=== PATIENT | male | born 1985 | race African-American/Black ===

== ENCOUNTER 2017-09-21 08:25 | Emergency (ER) | payer SELFPAY ==
[2017-09-21] MEDS ORDERED: Water For Inject, Bacteriostat 30 ML ONE (09:07)
[2017-09-21] MEDS ORDERED: methylPREDNISolone Sod Succ/PF 125 MG/2 ML VIAL ONE (09:07)
[2017-09-21] MEDS ORDERED: methylPREDNISolone Sod Succ/PF 125 MG/2 ML VIAL IVP SCH (09:30)
[2017-09-21] MEDS ORDERED: methylPREDNISolone Sod Succ/PF 125 MG/2 ML VIAL IM SCH (09:30)
== END 2017-09-21 09:28 | disposition home or self-care (01) ==
LOC: ERS 08:25
DX: J45.901 Unspecified asthma with (acute) exacerbation (principal); I10 Essential (primary) hypertension; F17.210 Nicotine dependence, cigarettes, uncomplicated; Z79.899 Other long term (current) drug therapy
CPT/HCPCS: 93005; 94640; 96372; J2930; J7620

== ENCOUNTER 2018-01-13 16:39 | Emergency (ER) | payer SELFPAY ==
[2018-01-13] MEDS ORDERED: Ketorolac Tromethamine 30 MG/ML VIAL ONE (19:10)
[2018-01-13] MEDS ORDERED: Cyclobenzaprine 10 MG TAB ONE (19:10)
== END 2018-01-13 19:22 | disposition home or self-care (01) ==
LOC: ERS 16:39
DX: M54.5 Low back pain (principal); I10 Essential (primary) hypertension; J45.909 Unspecified asthma, uncomplicated; Z87.891 Personal history of nicotine dependence; Z79.899 Other long term (current) drug therapy
CPT/HCPCS: 96372; J1885

== ENCOUNTER 2018-05-02 17:58 | Emergency (ER) | payer SELFPAY ==
[2018-05-02] MEDS ORDERED: predniSONE 20 MG TAB ONE (18:48)
== END 2018-05-02 19:30 | disposition home or self-care (01) ==
LOC: ERS 17:58
DX: I10 Essential (primary) hypertension (principal); J45.909 Unspecified asthma, uncomplicated; F17.210 Nicotine dependence, cigarettes, uncomplicated; Z79.899 Other long term (current) drug therapy
CPT/HCPCS: J7506; J7620

== ENCOUNTER 2018-11-14 14:40 | Emergency (ER) | payer SELFPAY ==
[2018-11-14] MEDS ORDERED: Bupivacaine 0.25% 10 ML VIAL ONE (15:02)
--- NOTE | 2018-11-15 13:59 | EKG ---
Test Reason : Blood Pressure : / mmHG Vent. Rate : 086 BPM Atrial Rate : 086 BPM P-R Int : 158 ms QRS Dur : 090 ms QT Int : 372 ms P-R-T Axes : 038 -01 007 degrees QTc Int : 445 ms Normal sinus rhythm Possible Left atrial enlargement Left ventricular hypertrophy Abnormal ECG Confirmed by FESTUS PEAOCCK D.O. ([id number]), industrial editor CHAPIN PEREZ ([id number]) on 11/15/2018 1:59:03 PM Referred By: Confirmed By:FESTUS PEACOCK D.O.
== END 2018-11-14 15:29 | disposition home or self-care (01) ==
LOC: ERS 14:40
DX: K04.7 Periapical abscess without sinus (principal); I10 Essential (primary) hypertension; Z87.891 Personal history of nicotine dependence; Z79.51 Long term (current) use of inhaled steroids; Z79.899 Other long term (current) drug therapy
CPT/HCPCS: 93005; S0020

== ENCOUNTER 2018-12-16 10:22 | Emergency (ER) | payer SELFPAY ==
[2018-12-16 11:54] LABS: #Basophils 0.1 thou/uL (0.0-0.2); #Eosinphils 0.1 thou/uL (0.0-0.7); #Lymphocytes 1.9 thou/uL (1.20-3.40); #Monocytes 0.4 thou/uL (0.11-0.59); #Neutrophils 5.9 thou/uL (1.40-6.50); %Eosinophils 1.4 % (0.0-10.0); %Lymphocytes 22.5 % (21.0-51.0); %Monocytes 5.1 % (0.0-10.0); Mean Corpuscular HGB CONC 32.4 g/dL (32.0-36.0); Mean Corpuscular Hemoglobin 26.7 pg (27.0-31.0); Mean Corpuscular Volume 82.4 fL (78.0-98.0); Mean Platelet Volume 7.4 fL (7.4-10.4); Platelet Count 258 thou/uL (130-400); RBC Distribution Width 14.2 % (11.5-14.5); Red Blood Cell (RBC) Count 5.61 mill/uL (4.70-6.10); White Blood Cell (WBC) Count 8.4 thou/uL (4.8-10.8)
--- NOTE | 2018-12-16 12:24 | CT ---
NONCONTRAST CT HEAD: Date: 12/16/18 HISTORY: Headache and chills. FINDINGS: There is no evidence of a hemorrhage, acute infarction, mass effect, or midline shift. Ventricular sy stem is normal in size, shape, and position. There is mild mucosal thickening in the ethmoidal air ce lls bilaterally, as well as involving the right sphenoid sinus. Mastoid air cells are clear. Calvaria l structures are intact. IMPRESSION: 1. No acute intracranial abnormality is demonstrated. 2. Mild sinus disease. POS: [facility]
[2018-12-16] MEDS ORDERED: Ibuprofen 800 MG TAB ONE (12:39)
[2018-12-16 12:46] LABS: Anion Gap 13 mmol/L (10-20); BUN (Urea Nitrogen) 8 mg/dL (8.9-20.6); Calc. Creatinine Clearance 0 mL/min (70-130); Calcium 9.7 mg/dL (7.8-10.44); Carbon Dioxide 23 mmol/L (22-29); Estimated GFR-MDRD Greater than 90; Glucose 86 mg/dL (70-105)
[2018-12-16 12:51] LABS: Chloride 104 mmol/L (98-107); Sodium 136 mmol/L (136-145)
--- NOTE | 2018-12-20 13:29 | EKG ---
Test Reason : HEADACHE/DIZZINESS Blood Pressure : / mmHG Vent. Rate : 080 BPM Atrial Rate : 080 BPM P-R Int : 162 ms QRS Dur : 092 ms QT Int : 366 ms P-R-T Axes : 025 004 012 degrees QTc Int : 422 ms Normal sinus rhythm Moderate voltage criteria for LVH, may be normal variant Borderline ECG Confirmed by HOMERO DE SANTIAGO ([id number]), editor producer CHAPIN PEREZ ([id number]) on 12/20/2018 1:28:40 PM Referred By: ANYI Confirmed By:HOMERO DE SANTIAGO
== END 2018-12-16 12:36 | disposition home or self-care (01) ==
LOC: ERS 10:22
DX: I10 Essential (primary) hypertension (principal); B34.9 Viral infection, unspecified; J45.909 Unspecified asthma, uncomplicated; Z87.891 Personal history of nicotine dependence; Z79.899 Other long term (current) drug therapy
CPT/HCPCS: 36415; 70450; 80048; 84484; 85025; 87804; 93005

== ENCOUNTER 2019-02-03 05:56 | Emergency (ER) | payer SELFPAY | END 2019-02-03 06:21 | disposition home or self-care (01) | LOC: ERS 05:56 | DX: R11.2 Nausea with vomiting, unspecified (principal); R10.9 Unspecified abdominal pain; I10 Essential (primary) hypertension; J45.909 Unspecified asthma, uncomplicated; Z87.891 Personal history of nicotine dependence; Z79.899 Other long term (current) drug therapy | CPT/HCPCS: 99283 ==

== ENCOUNTER 2019-02-06 05:40 | Emergency (ER) | payer SELFPAY ==
[2019-02-06] MEDS ORDERED: Ondansetron PF 4 MG/2 ML Vial ONE (06:02)
[2019-02-06 06:27] LABS: #Basophils 0.1 thou/uL (0.0-0.2); #Eosinphils 0.2 thou/uL (0.0-0.7); #Monocytes 0.6 thou/uL (0.11-0.59); %Basophils 1.3 % (0.0-1.0); %Eosinophils 2.6 % (0.0-10.0); %Lymphocytes 34.1 % (21.0-51.0); %Monocytes 9.6 % (0.0-10.0); %Neutrophils 52.4 % (42.0-75.0); Hemoglobin 14.9 g/dL (14.0-18.0); Mean Corpuscular HGB CONC 31.7 g/dL (32.0-36.0); Mean Corpuscular Volume 85.4 fL (78.0-98.0); Platelet Count 184 thou/uL (130-400); RBC Distribution Width 13.7 % (11.5-14.5); Red Blood Cell (RBC) Count 5.51 mill/uL (4.70-6.10); White Blood Cell (WBC) Count 5.8 thou/uL (4.8-10.8)
[2019-02-06 07:52] LABS: Albumin 4.1 g/dL (3.5-5.0)
[2019-02-06 07:53] LABS: Chloride 109 mmol/L (98-107); Potassium 4.3 mmol/L (3.5-5.1); Sodium 140 mmol/L (136-145)
[2019-02-06 07:54] LABS: Calcium 8.5 mg/dL (7.8-10.44)
[2019-02-06 07:55] LABS: Globulin 2.5 g/dL (2.4-3.5); Glucose 91 mg/dL (70-105); Protein, Total 6.6 g/dL (6.0-8.3)
[2019-02-06 07:56] LABS: Anion Gap 14 mmol/L (10-20); Bilirubin, Total Less than 0.2 mg/dL (0.2-1.2); Carbon Dioxide 21 mmol/L (22-29)
[2019-02-06 07:57] LABS: Alkaline Phosphatase 79 U/L (40-150)
[2019-02-06 07:58] LABS: Calc. Creatinine Clearance 0 mL/min (70-130); Estimated GFR-MDRD Greater than 90
[2019-02-06 07:59] LABS: BUN (Urea Nitrogen) 9 mg/dL (8.9-20.6)
[2019-02-06 08:00] LABS: AST (SGOT) 23 U/L (5-34)
[2019-02-06 08:01] LABS: ALT (SGPT) 25 U/L (8-55); Lipase 33 U/L (8-78)
== END 2019-02-06 08:20 | disposition home or self-care (01) ==
LOC: ERS 05:40
DX: R11.2 Nausea with vomiting, unspecified (principal); R19.7 Diarrhea, unspecified; I10 Essential (primary) hypertension; J45.909 Unspecified asthma, uncomplicated; Z87.891 Personal history of nicotine dependence; Z79.899 Other long term (current) drug therapy
CPT/HCPCS: 36415; 80053; 82274; 83630; 83690; 85025; 87045; 87046; 87449; 87899; 96361; 96374; J2405

== ENCOUNTER 2019-05-22 05:29 | Emergency (ER) | payer SELFPAY | END 2019-05-22 05:48 | disposition home or self-care (01) | LOC: ERS 05:29 | DX: K52.9 Noninfective gastroenteritis and colitis, unspecified (principal); I10 Essential (primary) hypertension; Z87.891 Personal history of nicotine dependence; Z79.899 Other long term (current) drug therapy | CPT/HCPCS: 99283 ==

== ENCOUNTER 2020-06-30 10:28 | Emergency (ER) | payer SELFPAY ==
[2020-06-30] MEDS ORDERED: Ketorolac Tromethamine 30 MG/ML VIAL ONE (11:59)
--- NOTE | 2020-06-30 12:28 | RAD ---
RADIOGRAPH CERVICAL SPINE 3 VIEWS: DATE: 06/30/2020 HISTORY: 35-year-old male with cervicalgia TECHNIQUE: AP, lateral, and swimmer's views. FINDINGS: Alignment is normal. However, all levels caudal to C4-5 are obscured by the shoulders on the lateral view, and very poorly visualized on the swimmer's view, because of body habitus. Vertebral body heights and disc spaces are maintained. Borderline thickening of prevertebral soft tissues. There is no fracture, significant osteophytes, or any other focal osseous abnormality superior to C4-5. IMPRESSION: 1. No abnormality of cervical spine identified superior to C4-5. 2. Levels inferior to C4-5 are obscured.
== END 2020-06-30 12:55 | disposition home or self-care (01) ==
LOC: ERS 10:28
DX: M62.838 Other muscle spasm (principal); I10 Essential (primary) hypertension; J45.909 Unspecified asthma, uncomplicated; Z87.891 Personal history of nicotine dependence
CPT/HCPCS: 72040; 96372; J1885

== ENCOUNTER 2020-07-07 13:18 | Emergency (ER) | payer OTHER, SELFPAY ==
[2020-07-08 14:26] LABS: SARS-CoV-2 MS2 Positive; SARS-CoV-2 N Gene Negative; SARS-CoV-2 S Gene Negative; SARS-CoV-2 by NAA Not Detected (NotDetected); SARS-CoV-2 orf1ab Negative
== END 2020-07-07 13:32 | disposition home or self-care (01) ==
LOC: ERS 13:18
DX: R50.9 Fever, unspecified (principal); R51 Headache; R06.02 Shortness of breath; Z20.828 Contact with and (suspected) exposure to other viral communicable diseases; I10 Essential (primary) hypertension; J45.909 Unspecified asthma, uncomplicated; Z87.891 Personal history of nicotine dependence
CPT/HCPCS: 87635; 99283; U0003

== ENCOUNTER 2020-11-21 22:07 | Emergency (ER) | payer OTHER, SELFPAY ==
[2020-11-21] MEDS ORDERED: predniSONE 20 MG TAB ONE ×2 (23:11→23:12)
[2020-11-21] MEDS ORDERED: Albuterol 200 PUFF (6.7GM INHALER) ONE (23:13)
[2020-11-22 05:19] LABS: SARS-CoV-2 MS2 Positive; SARS-CoV-2 N Gene Negative; SARS-CoV-2 S Gene Negative; SARS-CoV-2 by NAA Not Detected (NotDetected); SARS-CoV-2 orf1ab Negative
== END 2020-11-22 00:16 | disposition home or self-care (01) ==
LOC: ERS 22:07
DX: R06.2 Wheezing (principal); Z20.828 Contact with and (suspected) exposure to other viral communicable diseases; I10 Essential (primary) hypertension; Z87.891 Personal history of nicotine dependence
CPT/HCPCS: 87635; J7512; U0003

== ENCOUNTER 2020-12-27 08:33 | Emergency (ER) | payer SELFPAY | END 2020-12-27 09:25 | disposition home or self-care (01) | LOC: ERS 08:33 | DX: J45.901 Unspecified asthma with (acute) exacerbation (principal); I10 Essential (primary) hypertension; Z87.891 Personal history of nicotine dependence; Z79.51 Long term (current) use of inhaled steroids | CPT/HCPCS: 99284 ==

== ENCOUNTER 2021-03-27 08:44 | Emergency (ER) | payer SELFPAY ==
[2021-03-27] MEDS ORDERED: Lidocaine Viscous Sol 2% 15 ml UD Cup ONE (10:05)
[2021-03-27] MEDS ORDERED: Mag-Al 1200 mg/1200 mg/30 ML UDCUP ONE (10:05)
[2021-03-27] MEDS ORDERED: Ketorolac Tromethamine 30 MG/ML VIAL ONE (10:06)
[2021-03-27 10:08] LABS: #Basophils 0.1 thou/uL (0.0-0.2); #Eosinphils 0.4 thou/uL (0.0-0.7); #Lymphocytes 2.5 thou/uL (1.20-3.40); #Monocytes 0.8 thou/uL (0.11-0.59); #Neutrophils 4.1 thou/uL (1.40-6.50); %Basophils 1.3 % (0.0-1.0); %Eosinophils 5.1 % (0.0-10.0); %Lymphocytes 31.9 % (21.0-51.0); %Neutrophils 51.7 % (42.0-75.0); Hemoglobin 14.2 g/dL (14.0-18.0); Mean Corpuscular HGB CONC 31.5 g/dL (32.0-36.0); Mean Corpuscular Hemoglobin 27.3 pg (27.0-31.0); Mean Corpuscular Volume 86.6 fL (78.0-98.0); Mean Platelet Volume 7.6 fL (7.4-10.4); Platelet Count 229 thou/uL (130-400); Red Blood Cell (RBC) Count 5.22 mill/uL (4.70-6.10); White Blood Cell (WBC) Count 7.9 thou/uL (4.8-10.8)
[2021-03-27 10:29] LABS: ALT (SGPT) 29 U/L (8-55); AST (SGOT) 32 U/L (5-34); Alkaline Phosphatase 61 U/L (40-110); Anion Gap 13 mmol/L (10-20); BUN (Urea Nitrogen) 12 mg/dL (8.9-20.6); Bilirubin, Total Less than 0.2 mg/dL (0.2-1.2); Calc. Creatinine Clearance 0 mL/min (70-130); Calcium 8.4 mg/dL (7.8-10.44); Carbon Dioxide 23 mmol/L (22-29); Chloride 109 mmol/L (98-107); Globulin 2.9 g/dL (2.4-3.5); Glucose 107 mg/dL (70-105); Potassium 4.6 mmol/L (3.5-5.1); Protein, Total 6.9 g/dL (6.0-8.3); Sodium 140 mmol/L (136-145)
== END 2021-03-27 11:20 | disposition home or self-care (01) ==
LOC: ERS 08:44
DX: K27.9 Peptic ulcer, site unspecified, unspecified as acute or chronic, without hemorrhage or perforation (principal); K03.81 Cracked tooth; I10 Essential (primary) hypertension; F17.200 Nicotine dependence, unspecified, uncomplicated; J45.909 Unspecified asthma, uncomplicated; Z79.899 Other long term (current) drug therapy
CPT/HCPCS: 36415; 71045; 80053; 84484; 85025; 93005; 96374; J1885

== ENCOUNTER 2021-04-19 16:07 | Emergency (ER) | payer SELFPAY ==
[2021-04-19] MEDS ORDERED: Dexamethasone 4 MG TAB ONE ×2 (16:20→16:21)
== END 2021-04-19 16:46 | disposition home or self-care (01) ==
LOC: ERS 16:07
DX: J45.901 Unspecified asthma with (acute) exacerbation (principal); I10 Essential (primary) hypertension
CPT/HCPCS: 94640; J7620; J8540

== ENCOUNTER 2021-04-22 13:10 | Emergency (ER) | payer SELFPAY ==
[2021-04-22] MEDS ORDERED: diphenhydrAMINE 25 MG CAP ONE (14:07)
[2021-04-22] MEDS ORDERED: Metoclopramide HCl 10 MG TAB ONE (14:07)
[2021-04-22] MEDS ORDERED: hydrOXYzine 25 MG TAB ONE (14:07)
== END 2021-04-22 14:58 | disposition home or self-care (01) ==
LOC: ERS 13:10
DX: I10 Essential (primary) hypertension (principal); J45.909 Unspecified asthma, uncomplicated
CPT/HCPCS: 99283; Q0163

== ENCOUNTER 2022-09-13 15:39 | Outpatient (CLI) | payer BC | END 2022-09-13 15:40 | disposition home or self-care (01) | LOC: LABBT 15:39 | PROVIDERS: ATTEND Specialist | DX: Z01.810 Encounter for preprocedural cardiovascular examination (principal); R94.31 Abnormal electrocardiogram [ECG] [EKG] | CPT/HCPCS: 93005; 93010 ==

== ENCOUNTER 2022-09-14 06:46 | Day surgery (SDC) | payer BC ==
[2022-09-13 15:31] VITALS: BMI 33.0
[2022-09-14] MEDS ORDERED: Ketorolac Tromethamine 30 MG/ML VIAL ONE (07:25)
[2022-09-14] MEDS ORDERED: Acetaminophen 500 MG TAB ONE (07:25)
[2022-09-14] MEDS ORDERED: Bupivacaine PF 0.5% 30 ML VIAL ONE (08:51)
[2022-09-14] MEDS ORDERED: EPINEPHrine 1 MG/ML AMP ONE (08:51)
[2022-09-14] MEDS ORDERED: Levofloxacin 500 mg/D5W 100 ml Premix Bag ONE (10:09)
[2022-09-14] MEDS ORDERED: Glycopyrrolate 0.2 MG/ML 5 ML SYRINGE ONE (10:14)
[2022-09-14] MEDS ORDERED: Dexamethasone 20 MG/5 ML VIAL ONE (10:14)
[2022-09-14] MEDS ORDERED: Rocuronium Bromide 10 MG/ML (10ML VIAL) ONE (10:14)
[2022-09-14] MEDS ORDERED: Ondansetron PF 4 MG/2 ML Vial ONE (10:14)
[2022-09-14] MEDS ORDERED: PROPOFOL 200 MG/20 ML VIAL ONE (10:14)
[2022-09-14] MEDS ORDERED: NEOSTIGMINE 3 MG/3 ML SYR 3 MG/3 ML SYRINGE ONE (10:14)
[2022-09-14] MEDS ORDERED: fentaNYL Citrate/PF 100 MCG/2 ML SYRINGE ONE (10:17)
[2022-09-14] MEDS ORDERED: SUGAMMADEX SODIUM 200 MG/2 ML VIAL ONE (10:56)
[2022-09-14] MEDS ORDERED: Fentanyl 100 MCG/2 ML VIAL ONE (11:07)
[2022-09-14] MEDS ORDERED: Morphine 2 MG/ML VIAL ONE ×3 (11:46→13:38)
[2022-09-14] MEDS ORDERED: hydrALAZINE 20 MG/ML VIAL ONE (11:47)
[2022-09-14] MEDS ORDERED: HYDROcodone/Acetaminophen 5/325 mg Tablet ONE (12:09)
[2022-09-14] MEDS ORDERED: Metoprolol Tartrate 5 MG/5 ML VIAL ONE (13:22)
== END 2022-09-14 14:00 | disposition home or self-care (01) ==
LOC: SDC 06:46
PROVIDERS: ATTEND Specialist
PROC: 0FT44ZZ Resection of Gallbladder, Percutaneous Endoscopic Approach (ICD-10-PCS; principal; 2022-09-14)
DX: K81.1 Chronic cholecystitis (principal); I10 Essential (primary) hypertension; J45.909 Unspecified asthma, uncomplicated; Z79.899 Other long term (current) drug therapy
CPT/HCPCS: 88304; C1713; J0171; J0360; J1100; J1885; J1956; J2270; J2405; J2704; J3010; S0020

== ENCOUNTER 2024-06-22 15:52 | Emergency (ER) | payer BC, SELFPAY ==
[2024-06-22] MEDS ORDERED: predniSONE 20 MG TAB ONE (17:20)
[2024-06-22 18:03] LABS: Influenza A by NAA Not Detected (NotDetected); Influenza B by NAA Not Detected (NotDetected); SARS-CoV-2 NAA Rapid Test DETECTED (NotDetected)
== END 2024-06-22 18:51 | disposition home or self-care (01) ==
LOC: ERS 15:52
DX: U07.1 COVID-19 (principal); J18.9 Pneumonia, unspecified organism; I10 Essential (primary) hypertension; F17.200 Nicotine dependence, unspecified, uncomplicated
CPT/HCPCS: 71045; J7512